=== PATIENT | female | born 1955 | race Caucasian/White ===

== ENCOUNTER 2019-06-11 05:18 | Inpatient (IN) | payer BC, MEDICARE, SELFPAY ==
[2019-05-17 12:53] VITALS: BP 153/88; PULSE 71; RESP 16; TEMP 36.8; O2SAT 97; BMI 26.6
[2019-05-17 13:29] LABS: Absolute Neutrophil Count 3.6 X10^3/uL (2.0-7.7); Basophil# 0.04 X10^3/uL; Basophil% 0.7 % (0-1); Eosinophil# 0.05 X10^3/uL; Eosinophils% 0.8 % (0-5); Hematocrit 42.8 % (37-47); Hemoglobin 14.2 g/dL (12.0-15.0); Lymphocyte % 30.1 % (19-41); Mean Corp Hgb Conc 33.2 g/dL (32-36); Mean Corpuscular Hgb 30.1 pg (27.0-32.0); Mean Corpuscular Volume 90.9 fL (81-99); Mean Platelet Vol. 9.2 fl (6.2-12.0); Monocyte# 0.44 X10^3/uL; Monocyte% 7.3 % (0-10); NRBC Flagged by Analyzer 0 % (0-5); Neutrophil # 3.64 X10^3/uL (2.7-7.7); Neutrophil % 60.8 % (47-70); Platelet Count 249 K/mm3 (150-450); RBC Distribution Width CV 13.2 % (11.6-14.6); RBC Distribution Width SD 44.4 fl (35.1-43.9); Red Blood Count 4.71 M/mm3 (4.2-5.4)
[2019-05-17 13:39] LABS: Anion Gap 5 (5-15); BUN 16 mg/dL (7-18); BUN/Creat Ratio 22.6 RATIO (10-20); Calcium,Total 9.1 mg/dL (8.5-10.1); Chloride 107 mmol/L (98-107); Creatinine, Serum 0.71 mg/dL (0.55-1.02); EST Glomerular Filtration Rate 88 mL/min (>60); Est Glom Filt Rate - Afr Amer 106 mL/min (>60); Estimated Creatinine Clearance 69.12 ml/min; Glucose 81 mg/dL (74-106); Sodium Level 143 mmol/L (136-145)
[2019-06-11] VITALS (13 sets, daily range): BP systolic 87–147; BP diastolic 52–90; PULSE 59–74; RESP 16–18; TEMP 36.2–37.1; O2SAT 95–100; BMI 26.6
[2019-06-11] MEDS: Lactated Ringers 1,000 ML 100 ML IV ×2 (06:07→08:31)
[2019-06-11] MEDS: Magnesium Sulfate 4gm/100mL 4 GM/100 ML IV.SOLN. IV (06:10)
[2019-06-11] MEDS: Gabapentin 600 MG Tablet PO (06:10)
[2019-06-11] MEDS: Acetaminophen 500 MG Tablet 1000 MG PO ×3 (06:10→21:36)
[2019-06-11 06:16] LABS: Bedside Glucose 81 mg/dL (70-110)
--- NOTE | 2019-06-11 07:15 | HIP_PTH ---
PATIENT: OSITO GAO LOC: [facility]3 U#:[id number] AGE/SX: 64/F ROOM: MS305 RE06/11/[address]: Dr. Luis Leung DO : 1955 BED: 1 DIS: 06/12/2019 SPEC #: [id number] RECD: 06/11/19 09:39 STATUS: MAIRA RESilvestre #: [id number] APARNA: 06/11/19 07:[address]: Luis Leung DEPT: SURGICAL PATHOLOGY RECD BY: Alycia Rao ENTERED: 06/11/19 11:14 SP TYPE: TOTAL HIP OTHR DR: Out of Town Doctor Tissues: Hip, NOS Procedures: Decalcification bone/plaque Surgery Specimen Level IV HEADER OPERATION: Total hip replacement PRE-OP DIAGNOSIS: Severe osteoarthritis, right hip TISSUE SUBMITTED: Right hip femoral head MICROSCOPIC DIAGNOSIS Right hip/femoral head, total hip replacement: Femoral head with degenerative osteoarthritic changes. Fragments of fibroadipose tissue, fibroconnective tissue and reactive synovial tissue. RICARDO:charlie 06/14/19 MICROSCOPIC DESCRIPTION Slides are reviewed. GROSS DESCRIPTION Received is one container labeled with the patient's name and designated right femoral head. The specimen consists of a chambers femoral head with portion of femoral neck. The femoral head measures 4 x 4.5 x 4 cm and the portion of femoral neck measures up to 1.5 cm in length. A portion of soft tissue is noted on the top of the femoral head measuring 1.5 x 1 x 0.2 cm. The articular surface displays prominent osteophyte formation, eburnation and bone erosion. Plan Examiner sections are submitted in two cassettes as follows: 1 - soft tissue, entirely submitted, 2 - bone after decalcification. / RICARDO:charlie 06/11/19 TC:5 CPT: 43471, 09349
[2019-06-11] MEDS: Cefazolin 2 GM in 0.9% Normal Saline 100 ML IV (07:35)
--- NOTE | 2019-06-11 08:54 | OP.PCM_ITS ---
Report of Operation Date of Procedure: 06/11/19 Pre-Operative Diagnosis: OA right hip Post-Operative Diagnosis: same Surgery/Procedure Performed:: Rught THR Description of Surgical Findings:: Primary Surgeon/Physician: Luis Leung sprinkler fitter: Selene Garcia PA-C sprinkler fitter: Pre-Operative Diagnosis: OA right hip Post-Operative Diagnosis: same Surgery/Procedure Performed: Right THR Estimated Blood Loss: 120cc Specimen's Removed: Bone Type of Anesthesia: spinal ASA Class: ASA3 Severe Disease Implants: [Vasquez Trident Tritanium cup size 46 mm, MDM neutral head/liner, Accolade 2 size 3 stem ] Surgical Indications: Patient has severe end-stage osteoarthritic changes in the [right ] hip. They have failed conservative measures including activity modification, anti-inflammatories, use of assistive devices. This to the point where the pain affects their ability to enjoy life and complete activities of daily living without discomfort. Patient has elected to undergo the above procedure Procedure Description: The patient was greeted in the preoperative area the [right ] hip was marked with surgical marker preoperative antibiotics administered. The patient was then taken to or suite in stable condition. Preoperative tranexamic acid was also utilized. Once the patient was placed in the supine position on the operating room table and once adequate anesthesia was obtained they were then placed in the lateral decubitus position with the surgical hip facing the field. All bony prominences were well-padded. A commercial hip position was utilized. The appropriate extremity was then prepped and draped in usual sterile fashion. Ioban was placed on the skin. Surgical timeout was performed and surgery was commenced. A standard posterior approach to the hip was then performed. Incision was planned and carried out with a #10 blade scalpel. Dissection was then carried length of the incision to the IT band which was split proximally and distally. A Charnley retractor was then placed for soft tissue retraction exposing the piriformis. A standard posterior capsulotomy was performed. Severe eburnation of bone was noted and periarticular osteophytes were identified consistent with severe end-stage osteoarthritis. A femoral neck osteotomy guide was used to kalli the proximal femur. A femoral osteotomy was then created approximately 1 fingerbreadth above the lesser trochanter. This was measured and placed on the back table. Once this was complete acetabular retractors were placed anteriorly and posteriorly. Labrum was then removed from the acetabulum exposing the entire cup of the acetabulum. Sequential reaming was then commenced and the acetabulum was medialized and sequentially widened in order to accommodate appropriate size cup. The acetabular cup was then impacted into position to the appropriate depth referencing approximately 30? anteversion and 45? of inclination. Excellent purchase was obtained. [2] appropriate sized cancellous screws were placed in the cup. An appropriate size MDM liner was then placed. Attention was then turned to the femoral preparation. The hip was placed in the 90/90 position and a lateralizing box osteotome was utilized. Femoral starting awl was used followed by sequential broaching to the appropriate size. Excellent purchase was obtained with the stem no stem subsidence and excellent rotational stability was confirmed. A calcar reamer was then used in the trial head neck was placed on the broach. The hip was then located and taken through full range of motion flexion internal and external rotation as well as extension. Excellent stability was noted no impingement was identified of the components and leg lengths appear to be appropriate. The hip was at this point dislocated and the trial femoral components were removed. The final femoral stem was then implanted and impacted to the appropriate depth. Again excellent purchase was obtained no stem subsidence or rotational instability was noted. The hip was once again trialed and confirmation of leg length and stability was performed. Soft tissue tension also appeared to be appropriate. At this point the hip was redislocated and the trunnion was cleaned and dried meticulously in the appropriate size MDM femoral head was placed on the clean dry trunnion using a 12/14 Vang taper. The hip was once again relocated and again taken through full range of motion. I did inject a cocktail of postoperative pain medication in the deep and superficial tissues. Copious irrigation was performed. Anatomic closure of the piriformis tendon was performed through drill holes in the greater trochanter. A #1 Vicryl 0 Vicryl was utilized in subcutaneous tissue and surgical herrera were placed in the skin. A well-padded nonadherent dressing was applied. Patient was taken to PACU in stable condition. No complications were identified. Will follow standard postop protocol for total hip arthroplasty. My assistant branch manager played a vital role in the procedure beginning with positioning, holding retraction of soft tissues, positioning the leg to optimize visualization during the procedure and assisting with wound closure. sprinkler fitter: Selene Garcia Type of Anesthesia:: Spinal Anesthesiologist: Vince Ojeda Specimen's removed: bone - Admit VTE Documentation VTE Present on Admission: No VTE Mechan Device Prophylaxis: SCD's, Thigh High GARRY Hose VTE Pharm Prophylaxis ordered?: Yes
--- NOTE | 2019-06-11 09:32 | RAD_ITS ---
STUDY: X-RAY - PELVIS AND RIGHT HIP REASON FOR EXAM: Female, 64 years old. Right total hip replacement. TECHNIQUE: 2 views of the pelvis and hip. COMPARISON: None. FINDINGS: The patient is status post right total hip replacement. There is good alignment. Postoperative soft tissue changes. RAD/Hip Min 2 Views (Portable) IMPRESSION: Status post right hip replacement. There is good alignment. Postoperative soft tissue changes. Electronically Signed: Moris Albarado, at 10:55 EDT , Service support ,
[2019-06-11] MEDS: Scopolamine 1mg/72hr Patch 1 PATCH TD (09:37)
[2019-06-11] MEDS: Lactated Ringers 1,000 ML 999 ML IV (09:49)
[2019-06-11] MEDS: Lactated Ringers 1,000 ML 125 ML IV ×2 (10:58→20:15)
[2019-06-11] MEDS: Ondansetron 4 MG/2 ML Vial IV (11:52)
[2019-06-11] MEDS: 0.9% NaCl Peripheral Flush Adult/Peds IV (11:53)
--- NOTE | 2019-06-11 15:16 | NURSING ---
This RN observed the post op assessment and documentation performed by student nurse Jaye Addison at bedside and agree with all documentation.
[2019-06-11] MEDS: Cefazolin 1 GM/50 ML BAG IV ×2 (15:29→23:46)
[2019-06-11] MEDS: oxyCODONE 5 MG Tablet PO ×2 (17:43→23:46)
[2019-06-11] MEDS: Senna/Docusate Sodium 1 Tablet 2 TABLET PO (21:35)
[2019-06-11] MEDS: Aspirin 325 MG Tablet PO (21:36)
[2019-06-12 03:26] VITALS: BP 121/61; PULSE 77; RESP 16; TEMP 36.5; O2SAT 97
[2019-06-12] MEDS: Ondansetron 4 MG/2 ML Vial IV (03:29)
[2019-06-12 05:40] LABS: Hematocrit 35.2 % (37-47); Hemoglobin 11.2 g/dL (12.0-15.0); Mean Corp Hgb Conc 31.8 g/dL (32-36); Mean Corpuscular Hgb 29.3 pg (27.0-32.0); Mean Corpuscular Volume 92.1 fL (81-99); Mean Platelet Vol. 9.6 fl (6.2-12.0); Platelet Count 160 K/mm3 (150-450); RBC Distribution Width CV 13.2 % (11.6-14.6); RBC Distribution Width SD 45.1 fl (35.1-43.9); Red Blood Count 3.82 M/mm3 (4.2-5.4); White Blood Count 6.7 K/mm3 (4.4-11.0)
[2019-06-12] MEDS: Acetaminophen 500 MG Tablet 1000 MG PO (05:51)
[2019-06-12 06:17] LABS: Anion Gap 6 (5-15); BUN 9 mg/dL (7-18); BUN/Creat Ratio 14.5 RATIO (10-20); Chloride 105 mmol/L (98-107); Creatinine, Serum 0.62 mg/dL (0.55-1.02); EST Glomerular Filtration Rate 103 mL/min (>60); Est Glom Filt Rate - Afr Amer 124 mL/min (>60); Estimated Creatinine Clearance 78.12 ml/min; Glucose 97 mg/dL (74-106); Potassium 4.5 mmol/L (3.5-5.1); Sodium Level 138 mmol/L (136-145)
--- NOTE | 2019-06-12 07:55 | PCM.PN.ORT ---
Subjective: Patient reports some muscle cramping but states pain is better than before surgery. Up and eating breakfast. - Physical Exam General: Alert, Oriented x3, No apparent distress Extremities: No clubbing, No cyanosis, No edema, Capillary Refill Less than 3 Seconds, No Calf Tenderness Skin: Incision - stable Neurological: Neuro grossly intact Vital Signs Temp Pulse Resp BP Pulse Ox 97.7 F L 77 16 121/61 H 97 06/12/19 03:26 06/12/19 03:26 06/12/19 03:26 06/12/19 03:06/12/19 03:26 Oxygen Flow Rate (L/min) 6 Oxygen Delivery Method Room Air Weight: 158 lb 1.143 oz Body Mass Index (BMI) 26.6 Intake and Output for Last 24 Hours 06/10/19 06/11/19 06/12/19 23:59 23:59 23:59 Intake Total 4470.83 / 6255.83 2597 / 2597 Output Total 525 / 1625 1600 / 1600 Balance 3945.83 / 4630.83 997 / 997 Laboratory Tests Past 24 Hrs 06/12/19 06/12/19 05:12 05:12 WBC 6.7 RBC 3.82 L Hgb 11.2 L Hct 35.2 L MCV 92.1 MCH 29.3 MCHC 31.8 L RDW Std Deviation 45.1 H RDW Coeff of Shaun 13.2 Plt Count 160 MPV 9.6 Sodium 138 Potassium 4.5 Chloride 105 Carbon Dioxide 27.0 Anion Gap 6 BUN 9 Creatinine 0.62 Estim Creat Clear Calc 78.12 Est GFR (MDRD) Af Amer 124 Est GFR (MDRD) Non-Af 103 BUN/Creatinine Ratio 14.5 Glucose 97 Calcium 8.0 L Medical Necessity - Tobacco Use Smoking Status: Never smoker Tobacco Use: Non-smoker Assessment/Plan s/p Right THR PT today, discharge to home this afternoon.
[2019-06-12] MEDS: oxyCODONE 5 MG Tablet PO ×2 (08:04→14:29)
--- NOTE | 2019-06-12 08:10 | DCINST_ITS ---
Discharge Diet: No Restrictions Discharge Activity: May Not Drive May shower in (days): 3 - only if incision is dry and without drainage. Do NOT soak/submerge in tub/pool/molina/stream/hot tub. Call your doctor if your incision/area has: Increased Pain/ Swelling, Increased Redness, Foul Smelling Discharge Call your doctor if you observe: Fever of 101 or Higher, Calf discomfort, Uncontrolled pain Allergies/Adverse Reactions: Allergies propofol Adverse Reaction (Verified 06/11/19 05:46) CONFUSION AND FOGGY reaction lasting 3 months Medications to take at Discharge Desmopressin Acetate 0.1 mg PO BID 05/17/19 Nebivolol HCl [Bystolic (Beta Valeri)] 5 mg PO DAILY 05/17/19 Acetaminophen [Tylenol] 1,000 mg PO Q8 tab 06/12/19 Aspirin 325 mg PO BID tab 06/12/19 Oxycodone [Oxyir] 5 - 10 mg PO Q4H PRN PRN 7 Days #60 tab 06/12/19 The following prescriptions were given: Oxycodone [Oxyir] 5 - 10 mg PO Q4H PRN PRN 7 Days #60 tab PRN Reason: Mod-Severe Pain (-07/12) Prescription Printed Primary Care Physician: CRISTOFER ROSS [Other] Test Results: Test results from this visit will be discussed in further detail at your follow- up appointment, if applicable.
[2019-06-12 08:50] VITALS: BP 116/74; PULSE 79; RESP 16; TEMP 36.4; O2SAT 96
[2019-06-12] MEDS: Aspirin 325 MG Tablet PO (08:54)
[2019-06-12] MEDS: Senna/Docusate Sodium 1 Tablet 2 TABLET PO (08:54)
--- NOTE | 2019-06-12 12:10 | CASEMGMT ---
RN CM DAIRY CATTLE FARMER CM to room to meet with patient for initial transition planning/care coordination assessment. GIULIA IBARRA introduced self and role at [facility]. Pt voices understanding and consents to assessment at this time. Pt sitting up in recliner chair in no distress at this time. Pt is A/O at this time and answers all questions appropriately. Care providers, pharmacy, and demographics verified/updated at this time. PCP: Dr Eleuterio Persaud Specialists: Dr Leung Preferred Pharmacy: [facility] in [place] Insurance: [employer] Prescription Benefit: Yes Living Will/HPOA: [facility] does not have LW or HCPOA . Interested in more information but [facility] does not want to talk with SW at this time to complete paperwork. Provided information on advanced directives and given Social Service rac card with number to call if chooses in the future to utilize [facility] social work for advanced directive completion. Educated patient that, if patient so chooses, can come back to [facility] and meet with a SW as an outpatient to complete health care advanced directives. Patient expresses understanding. LNOK: . 2 daughters Living Arrangements: Lives with her in 2-story home w/ramp to enter. [facility]. Independent prior to surgery Transportation: Pt/. Daughter will drive her home @ d/c DME: [facility] has the following DME: tub bench/shower chair, raised toilet seat, cane, rails/grab bars, hand held shower, walker Pt states no need for further DME at this time. HHC/SNF: No history of either. Denies needs and no needs identified. Pt wishes to return home w/OP therapy @ [facility] in [place] and [facility] appts have already been made for therapy and for follow up at Dr Leung's office. She states has no concerns with going home at time of discharge. CM to follow for and discharge planning/needs. Pt voices no further concerns/needs at this time. Advised pt to ask for CM if any further questions/concerns/needs arise. Voices understanding. PLAN: Home w/OP therapy Xiomy NEVAREZ RN, CM
[2019-06-12 14:25] VITALS: BP 115/71; PULSE 76; RESP 16; TEMP 36.9; O2SAT 97
== END 2019-06-12 14:46 | disposition home or self-care (01) | DRG 470 ==
LOC: ACINP 05:22 → MS3 05:39
PROVIDERS: Admitting Provider Orthopaedic Surgery; Referring Provider Orthopaedic Surgery; Visit Provider Orthopaedic Surgery
PROC: 0SR90JZ Replacement of Right Hip Joint with Synthetic Substitute, Open Approach (ICD-10-PCS; CPT 27130; principal; 2019-06-11 06:50)
DX: M16.11 Unilateral primary osteoarthritis, right hip (principal)
CPT/HCPCS: 36415; 73502; 80048; 82962; 85025; 85027; 87077; 87081; 88305; 88311; 97110; 97116; 97161; 97166; 97530; 97535; C1776; J7120; A4216; J2405